=== PATIENT | female | born 1990 | race Two or more races ===

== ENCOUNTER 2016-09-18 02:01 | Emergency (ER) | payer BC ==
[~2016-09-18] VITALS: Ht 157.5 cm; Wt 50.0 kg
[2016-09-18] MEDS ORDERED: SODIUM CHLORIDE FLUSH 10ML SYR IVF ONE (03:00)
[2016-09-18] MEDS ORDERED: ONDANSETRON 2MG/ML, 2ML IVPush ONE (03:00)
[2016-09-18] MEDS ORDERED: SODIUM CHLORIDE 0.9% 1,000ML IVBOLUS ONE (03:00)
[2016-09-18] MEDS ORDERED: MIDAZOLAM 1 MG/ML, 5ML ONE (03:24)
[2016-09-18] MEDS ORDERED: MORPHINE SULFATE 4 MG/ML, 1ML ONE ×2 (03:24→05:03)
[2016-09-18] MEDS ORDERED: MIDAZOLAM 1 MG/ML, 2ML IVPush ONE (03:30)
[2016-09-18] MEDS: MORPHINE SULFATE 4 MG/ML, 1ML IVPush PRN ×2 (03:36→05:06)
[2016-09-18] MEDS ORDERED: ONDANSETRON 2MG/ML, 2ML ONE (03:38)
[2016-09-18] MEDS ORDERED: LIDOCAINE 1%, 20ML ONE (04:01)
[2016-09-18] MEDS ORDERED: SULFAMETH./TRIMETHOPRIM DS 800MG/160MG TABLET PO ONE (04:30)
[2016-09-18] MEDS ORDERED: SULFAMETH./TRIMETHOPRIM DS 800MG/160MG TABLET ONE (05:04)
[2016-09-18 05:41] VITALS: BP 112/58
== END 2016-09-18 05:48 | disposition home or self-care (01) ==
LOC: ED 05:42
DX: N76.4 Abscess of vulva (principal)
CPT/HCPCS: 56405; 96361; 96374; 96375; 96376; 99152; 99285; J2405; J7030; 99153